=== PATIENT | female | born 1995 | race Caucasian/White ===

== ENCOUNTER 2017-01-09 18:55 | Inpatient (IN) | payer OTHER ==
[~2017-01-09] VITALS: Ht 167.6 cm; Wt 93.0 kg
[2017-01-09] MEDS ORDERED: SODIUM CHLOR 0.9% 1000 ML INJ 1,000 ML OTHER PRN (19:22)
[2017-01-09] MEDS: LACTATED RINGER'S 1000 ML INJ 1,000 ML IV SCH ×2 (19:25→20:00)
[2017-01-09] MEDS ORDERED: LACTATED RINGER'S 1000 ML INJ 1,000 ML IV PRN (19:25)
[2017-01-09] MEDS ORDERED: SODIUM CHLORIDE 0.9% FLUSH 10 ML FLUSH IV FLUSH PRN (19:30)
[2017-01-09] MEDS ORDERED: LIDOCAINE HCL 1% 50 ML VIAL I-DERMAL PRN (19:30)
[2017-01-09] MEDS ORDERED: CITRIC ACID-SODIUM CITRATE LIQ 30 ML UDC PO SCH (19:30)
[2017-01-09] MEDS ORDERED: OXYTOCIN 30 UNITS-500ML PREMIX 500 ML IV ONE (19:30)
[2017-01-09] MEDS ORDERED: ONDANSETRON HCL 4 MG/2 ML VIAL IV PRN (19:30)
[2017-01-09] MEDS ORDERED: LIDOCAINE HCL 1% 50 ML VIAL INFIL PRN (19:30)
[2017-01-09] MEDS ORDERED: PILL SPLITTER OTHER PRN (19:30)
[2017-01-09] MEDS ORDERED: SODIUM CHLORID 0.9% 500 ML INJ 500 ML IV PRN (19:30)
[2017-01-09] MEDS ORDERED: MISOPROSTOL 25 MCG SUPP VAGINAL ONE (19:30)
[2017-01-09] MEDS ORDERED: MISOPROSTOL 100 MCG TAB VAGINAL ONE (19:30)
[2017-01-09] MEDS ORDERED: PENICILLIN G POTASSIUM INJ 5,000,000 UNITS in SODIUM CHLORIDE 0.9% INJ 100 ML IV ONE (19:30)
[2017-01-09] MEDS ORDERED: MINERAL OIL 10 ML VIAL TOPICAL PRN (19:30)
[2017-01-09] MEDS ORDERED: SODIUM CHLOR 0.9% 1000 ML INJ 1,000 ML IV PRN (19:45)
--- NOTE | 2017-01-09 19:59 | HHI.HP ---
HPI Chief Complaint Scheduled IOL Travel History International Travel<30 Days: No Contact w/Intl Traveler<30Days: No Known Affected Area: No History of Present Illness HPI 21-year-old , IUP at 40.6 care complicated by GBS positive, late care, history of BV, Rh -, maternal short stature Patient presents for scheduled induction of labor at 40 weeks and 6 days. She reports good movement. She denies any LOF or VB. She reports no contractions or painful cramping. She has no other concerns or complaints tonight. Weeks Gestation: 40 Para: 0 : 1 History Past Medical History Narrative Medical Obesity Obstetric History Obstetric History Denies any abnormal Pap smears or sexually transmitted infections Past Surgical History Narrative Surgical Denies Family History Narrative Family History Denies Social History Alcohol Use: No Tobacco Use: No Substance Abuse: No Allergies-Medications (Allergen,Severity, Reaction): Coded Allergies: No Known Allergies (Unverified , 01/09/17) Home Meds No Active Prescriptions or Reported Meds Review of Systems Except as stated in HPI: all other systems reviewed are Neg Physical Exam Narrative GENERAL: Well-nourished, well-developed patient. SKIN: Warm and dry. HEAD: Normocephalic and atraumatic. EYES: No scleral icterus. No injection or drainage. ENT: No nasal drainage noted. Mucous membranes pink. Airway patent. NECK: Supple, trachea midline. No JVD. CARDIOVASCULAR: Regular rate and rhythm without murmurs, gallops, or rubs. RESPIRATORY: Breath sounds equal bilaterally. No accessory muscle use. BREASTS: Deferred ABDOMEN/GI: Abdomen soft, non-tender, bowel sounds present, no rebound, no guarding Gravid GENITOURINARY: External Genitalia: intact and normal in appearance. Normal BUS. No cervical or vaginal masses appreciated. Grossly normal rugae. Physiologic discharge. SVE closed/thick/high/posterior. FHT's: heart tones with baseline 150s, good accelerations, no decelerations, moderate long-term variability noted with a category 1 heart rate tracing EXTREMITIES: No cyanosis or edema. BACK: Nontender without obvious deformity. No CVA tenderness. NEUROLOGICAL: Awake and alert. Motor and sensory grossly within normal limits. Five out of 5 muscle strength in all muscle groups. Normal speech. Musculoskeletal: Grossly normal ROM, gait, muscle strength Psychiatric: Grossly normal memory and affect Caprini VTE Risk Assessment Caprini VTE Risk Assessment: No/Low Risk (score <= 1) Caprini Risk Assessment Model Point Value = 1 Point Value = 2 Point Value = 3 Point Value = 5 Age 41-60 Minor surgery BMI > 25 kg/m2 Swollen legs Varicose veins or History of unexplained or recurrent spontaneous Oral contraceptives or hormone replacement Sepsis (< 1 month) Serious lung disease, including pneumonia (< 1 month) Abnormal pulmonary function Acute myocardial infarction Congestive heart failure (< 1 month) History of inflammatory bowel disease Medical patient at bed rest Age 61-74 Arthroscopic surgery Major open surgery (> 45 min) Laparoscopic surgery (> 45 min) Malignancy Confined to bed (> 72 hours) Immobilizing plaster cast Central venous access Age >= 75 History of VTE Family history of VTE Factor V Leiden Prothrombin [id number] Lupus anticoagulant Anticardiolipin antibodies Elevated serum homocysteine Heparin-induced thrombocytopenia Other congenital or acquired thrombophilia Stroke (< 1 month) Elective arthroplasty Hip, pelvis, or leg fracture Acute spinal cord injury (< 1 month) Prophylaxis Regimen Total Risk Factor Score Risk Level Prophylaxis Regimen 0-1 Low Early ambulation 2 Moderate Order ONE of the following: *Sequential Compression Device (SCD) *Heparin 5000 units SQ BID 3-4 Higher Order ONE of the following medications: *Heparin 5000 units SQ TID *Enoxaparin/Lovenox 40 mg SQ daily (WT < 150 kg, CrCl > 30 mL/min) *Enoxaparin/Lovenox 30 mg SQ daily (WT < 150 kg, CrCl > 10-29 mL/min) *Enoxaparin/Lovenox 30 mg SQ BID (WT < 150 kg, CrCl > 30 mL/min) AND/OR *Sequential Compression Device (SCD) 5 or more Highest Order ONE of the following medications: *Heparin 5000 units SQ TID (Preferred with Epidurals) *Enoxaparin/Lovenox 40 mg SQ daily (WT < 150 kg, CrCl > 30 mL/min) *Enoxaparin/Lovenox 30 mg SQ daily (WT < 150 kg, CrCl > 10-29 mL/min) *Enoxaparin/Lovenox 30 mg SQ BID (WT < 150 kg, CrCl > 30 mL/min) AND *Sequential Compression Device (SCD) Data Data Orders Orders Admit To Inpatient (01/09/17 ) Diet Liquid (01/10/17 Breakfast) ^ Labor Induction (01/09/17 19:22) ^ Vaginal Insert (01/09/17 19:22) ^ Vaginal Lavage (01/09/17 19:22) Heart (01/09/17 19:22) Misoprostol (Cytotec) (01/09/17 19:30) Sodium Chloride 0.9% Flush (Ns Flush) (01/09/17 21:00) Sodium Chloride 0.9% Flush (Ns Flush) (01/09/17 19:30) Sodium Chlor 0.9% 1000 Ml Inj (Ns 1000 M (01/09/17 19:22) Misoprostol Supp (Cytotec Supp) (01/09/17 19:30) Misoprostol Supp (Cytotec Supp) (01/09/17 23:30) Inpatient Certification (01/09/17 ) Admit To Inpatient (01/09/17 ) Code Status (01/09/17 19:25) Vital Signs (Adult) .Per protocol (01/09/17 19:25) Heart (01/09/17 19:25) Amnioinfusion (01/09/17 19:25) Urinary Catheter Management .ONCE (01/09/17 19:25) Lactated Ringer's 1000 Ml Inj (Lr 1000 M (01/09/17 19:25) Lactated Ringer's 1000 Ml Inj (Lr 1000 M (01/09/17 19:25) Sodium Chlorid 0.9% 500 Ml Inj (Ns 500 M (01/09/17 19:30) Sodium Chlor 0.9% 1000 Ml Inj (Ns 1000 M (01/09/17 19:45) Lidocaine 1% Inj (50 Ml) (Xylocaine 1% I (01/09/17 19:30) Citric Acid-Sodium Citrate Liq (Bicitra (01/09/17 19:30) Ondansetron Inj (Zofran Inj) (01/09/17 19:30) Fentanyl Inj (Fentanyl Inj) (01/09/17 19:30) Fentanyl Inj (Fentanyl Inj) (01/09/17 19:30) Penicillin G Potassium Inj (Pfizerpen-G (01/09/17 19:30) Complete Blood Count With Diff (01/09/17 19:25) Hold Clot (01/09/17:25) Abo/Rh Blood Type (01/09/17:) Urinalysis - C+S If Indicated (01/09/17 19:25) Resp Oxygen Non Rebreathe Mask (01/09/17 ) ^ Epidural / Intrathecal Infus (01/09/17:) Oxytocin 30 Units-500ml Premix (Pitocin (01/09/17:30) Lidocaine 1% Inj (50 Ml) (Xylocaine 1% I (01/09/17:30) Light Mineral Oil (Muri-Lube Oil) (01/09/17 19:30) Inpatient Certification (01/09/17 ) Specimen To Be Collected PRN (01/09/17:) Pill Splitter (Pill Splitter) (01/09/17 19:30) Penicillin G Potassium Inj (Pfizerpen-G (01/10/17 00:00) Assessment/Plan Assessment and Plan Assessment/plan: 1. IUP at 40.6 2. Induction of labor: Risks benefits and alternatives to induction of labor were discussed at length with the patient including the methods of delivery. We discussed that her last weight assessment was 6 pounds and 13 ounces on 12/10/16. We discussed that the fetus averages a half a pound per week growth but the ultrasound has some inaccuracies in measurement. We discussed the risks of vaginal delivery including those associated with shoulder dystocia which include but are not limited to permanent and irreversible neurological injury to the fetus, brain damage, and even . We discussed that she does not meet guidelines to recommend a delivery. We discussed indications as well as risks and benefits of delivery discussed that delivery is increased in patients who are undergoing induction of labor. We discussed that she would be a candidate for an delivery for failed induction, failure to progress, or nonreassuring status. The patient accepts risks for vaginal delivery and will agree to if indicated. Cytotec 25 g was placed as per protocol. 3. GBS positive: Will start penicillin G in labor. 4. Late care and 5. History of BV 6. Rh-: Status post program 7. well-being: Reassuring testing with moderate long-term variability, good accelerations, and no decelerations noted. heart rate is reassuring and appropriate for gestational age and is currently a category 1 tracing. Angely Dhaliwal MD Jan 09, 2017 19:59
[2017-01-09 20:37] LABS: AUTOMATED NEUTROPHIL # 5.9 TH/MM3 (1.8-7.7); BASOPHIL % 0.3 % (0.0-2.0); EOSINOPHIL # 0.1 TH/MM3 (0-0.4); EOSINOPHIL % 0.7 % (0.0-4.0); HEMATOCRIT 30.8 % (35.0-46.0); HEMO FLAGS DIFF FINAL; LYMPH % 27.5 % (9.0-44.0); LYMPHOCYTE # 2.7 TH/MM3 (1.0-4.8); MEAN CELL VOLUME 89.4 FL (80.0-100.0); MEAN CORPUSCULAR HEMOGLOBIN 30.7 PG (27.0-34.0); MEAN CORPUSCULAR HGB CONC 34.4 % (32.0-36.0); MONO % 10.6 % (0.0-8.0); NEUT % 60.9 % (16.0-70.0); PLATELET COUNT 228 TH/MM3 (150-450); RED BLOOD COUNT 3.45 MIL/MM3 (4.00-5.30); RED CELL DISTRIBUTION WIDTH 12.6 % (11.6-17.2); WHITE BLOOD COUNT 9.7 TH/MM3 (4.0-11.0)
[2017-01-09 20:52] LABS: BLOOD, URINE NEG (NEG); COMMENT (UR) CULT NOT INDICATED; CULTURE IF INDICATED CULT NOT INDICATED; GLUCOSE,URINE NEG (NEG); KETONE, URINE NEG (NEG); NITRITE,URINE NEG (NEG); URINE COLOR LIGHT-YELLOW (YELLW/STRAW)
[2017-01-09] MEDS: SODIUM CHLORIDE 0.9% FLUSH 10 ML FLUSH IV FLUSH SCH (21:00)
[2017-01-09] MEDS ORDERED: MISOPROSTOL 25 MCG SUPP VAGINAL PRN (23:30)
--- NOTE | 2017-01-10 00:21 | PD.LABORPN ---
Subjective Subjective Patient is resting comfortably, reports mild and irregular cramping. She is feeling normal movement. Objective Objective Pelvic Exam: Fingertip/50/-3 FHT's: Baseline FHTs in the 150s with moderate long-term variability, good accelerations, no decelerations noted. Category FHR tracing Weeks Gestation: 40 Gest Age Assessed Date: Jan 10, 2017 Gest Age Assessed Time: 00:20 Pt started active labor?: No Medical induction of labor?: Yes Medical induction start date: Jan 09, 2017 Medical induction start time: 20:00 Artificial rupture of membrane: No Assessment/Plan Assessment and Plan Assessment/plan: 1. IUP at 40.6 2. Induction of labor: Status post Cytotec 1, second Cytotec placed 3. GBS positive: Will start penicillin G when in labor 4. well-being: Reassuring testing was reactive NST and category 1 FHR tracing, continue monitoring Angely Dhaliwal MD Jan 10, 2017 00:21
[2017-01-10] MEDS ORDERED: OXYTOCIN 30 UNITS-500ML PREMIX 500 ML IV SCH (03:00)
[2017-01-10] MEDS: LACTATED RINGER'S 1000 ML INJ 1,000 ML IV SCH ×3 (04:03→17:50)
[2017-01-10] MEDS ORDERED: PENICILLIN G POTASSIUM INJ 2,500,000 UNITS in SODIUM CHLORIDE 0.9% INJ 100 ML IV SCH ×3 (07:45)
[2017-01-10] MEDS ORDERED: PENICILLIN G POT 5,000,000 UNITS/NS 100 ML(Mini-Bag Plus) IV ONE ×2 (08:00)
--- NOTE | 2017-01-10 10:05 | PD.LABORPN ---
Subjective Subjective Vaginal exam done. Pt has no complains. Objective Objective Pelvic Exam: Cervix: midposition Dilatation: 1cm Effacement: 30 Station: -3 Presentation: vertex Membranes: [intact or ruptured] Uterine Contractions: irregular, about every 4 mins FHT's: Category: 1 Baseline: 130 Reactive: positive Variability: moderate Decels: none Weeks Gestation: 40 Gest Age Assessed Date: Jan 10, 2017 Gest Age Assessed Time: 00:20 Pt started active labor?: No Medical induction of labor?: Yes Medical induction start date: Jan 09, 2017 Medical induction start time: 20:00 Artificial rupture of membrane: No Assessment/Plan Problem List: (1) 41 weeks gestation of ICD Codes: Z3A.41 - 41 weeks gestation of Assessment and Plan 21 yo at 41 wks in active labor. 1. IUP at 41 -oxytocin started per protocol - GBS positive on Pen G - will continue to monitor labor progression sdw with Alex Estes MD R1 Jan 10, 2017 10:04
[2017-01-10] MEDS: PENICILLIN G POTASSIUM INJ 2,500,000 UNITS in SODIUM CHLORIDE 0.9% INJ 100 ML IV SCH ×2 (15:04→20:00)
[2017-01-10] MEDS: SODIUM CHLORIDE 0.9% FLUSH 10 ML FLUSH IV FLUSH SCH (20:00)
[2017-01-10] MEDS ORDERED: fentaNYL 2MCG-BUPIV 0.125% INJ 100 ML ONE (23:10)
[2017-01-10] MEDS ORDERED: BUPIVACAINE HCL PF 0.25% 10 ML VIAL ONE (23:10)
[2017-01-11] MEDS ORDERED: ePHEDrine/NS 25 MG/5 ML SYR IV PRN (00:45)
[2017-01-11] MEDS ORDERED: NO SYSTEM NARCOTICS PRN (00:45)
[2017-01-11] MEDS ORDERED: DO NOT ADMINISTER ANTICOAGULANTS PRN (00:45)
[2017-01-11] MEDS: PENICILLIN G POTASSIUM INJ 2,500,000 UNITS in SODIUM CHLORIDE 0.9% INJ 100 ML IV SCH ×6 (00:49→20:00)
[2017-01-11] MEDS: fentaNYL 2MCG-BUPIV 0.125% 100 ML EPIDURAL SCH ×3 (00:51→13:57)
[2017-01-11] MEDS: SODIUM CHLORIDE 0.9% FLUSH 10 ML FLUSH IV FLUSH SCH (09:00)
[2017-01-11] MEDS: LACTATED RINGER'S 1000 ML INJ 1,000 ML IV SCH (11:25)
[2017-01-11] MEDS ORDERED: LIDOCAINE 2%/EPINEPHrine PF 1:200,000 20ML SDV INFIL ONE (12:00)
[2017-01-11] MEDS ORDERED: MORPHINE SULFATE PF 5 MG/10 ML VIAL EPIDURAL ONE (12:00)
[2017-01-11] MEDS ORDERED: PHENYLEPH/NS 1000 MCG/10 ML SYR IV ONE (12:00)
[2017-01-11] MEDS ORDERED: OXYTOCIN 10 UNIT/ML AMP IV ONE (12:00)
[2017-01-11] MEDS ORDERED: ONDANSETRON HCL 4 MG/2 ML VIAL IV PUSH ONE (12:00)
[2017-01-11] MEDS ORDERED: LACTATED RINGER'S 1000 ML INJ 1,000 ML IV ONE ×2 (12:00→14:37)
--- NOTE | 2017-01-11 12:45 | PD.LABORPN ---
Subjective Subjective Patient is feeling contraction pain again. Objective Vital Signs Vital Signs Date Time Temp Pulse Resp B/P (MAP) Pulse Ox O2 Delivery O2 Flow Rate FiO2 01/11/17 07:53 18 Objective Pelvic Exam: SVE 4/90/-3, no significant change from examination at 7:40 AM FHT's: Category 1F HR with baseline in the 140s, moderate long-term variability , good accelerations, no decelerations noted [place]: Every 3 minutes Weeks Gestation: 41 Gest Age Assessed Date: Jan 10, 2017 Gest Age Assessed Time: 00:20 Pt started active labor?: Yes Active labor start date: Jan 11, 2017 Active labor start time: 07:40 Medical induction of labor?: Yes Medical induction start date: Jan 09, 2017 Medical induction start time: 20:00 Artificial rupture of membrane: No Artificial ROM date: Jan 10, 2017 Artifical ROM time: 12:00 Assessment/Plan Problem List: (1) 41 weeks gestation of ICD Codes: Z3A.41 - 41 weeks gestation of Assessment and Plan Assessment/plan: 1. IUP at 41.1 2. Induction of labor: Patient status post Cytotec induction, now on oxytocin with no cervical change in 5 hours, we'll reassess in 2-3 hours. Discussed with patient the potential need for delivery if indicated 3. GBS positive: Continue penicillin G 4. well-being: Reassuring testing with category 1 heart rate tracing, will continue Angely Rachel MD Jan 11, 2017 12:45
[2017-01-11] MEDS ORDERED: MISOPROSTOL 200 MCG TAB ONE (14:38)
[2017-01-11] MEDS ORDERED: METHYLERGONOVINE MALEATE 0.2 MG/ML VIAL ONE (14:39)
[2017-01-11] MEDS ORDERED: OXYTOCIN 10 UNIT/ML AMP ONE (14:44)
[2017-01-11] MEDS ORDERED: ACETAMINOPHEN 1000 MG/100 ML 100 ML IV ONE ×2 (14:44→19:45)
--- NOTE | 2017-01-11 14:55 | PD.LABORPN ---
Subjective Subjective Patient is resting comfortably Objective Vital Signs Vital Signs Date Time Temp Pulse Resp B/P (MAP) Pulse Ox O2 Delivery O2 Flow Rate FiO2 01/11/17 13:57 18 01/11/17 07:53 18 Objective Pelvic Exam: /-3 FHT's: 140s with moderate long-term variability, good accelerations, no accelerations, category 1 [place]: Every 2-3 minutes Weeks Gestation: 41 Gest Age Assessed Date: Jan 10, 2017 Gest Age Assessed Time: 00:20 Pt started active labor?: Yes Active labor start date: Jan 11, 2017 Active labor start time: 07:40 Medical induction of labor?: Yes Medical induction start date: Jan 09, 2017 Medical induction start time: 20:00 Artificial rupture of membrane: No Artificial ROM date: Jan 10, 2017 Artifical ROM time: 12:00 Assessment/Plan Problem List: (1) 41 weeks gestation of ICD Codes: Z3A.41 - 41 weeks gestation of Assessment and Plan Assessment/plan: 1. IUP at 41.1 2. Postdates Induction of labor: Patient has made no cervical change management the course of 7 hours and remains 4/90/-3. We discussed proceeding with delivery at this time due to her failure to progress further in labor. The patient is in agreement. Risks benefits and alternatives were discussed with patient again including but not limited to pain, infection, bleeding, bleeding that might require blood transfusion or hysterectomy, repeat operation, wound infection or breakdown, injury to other organs like the bladder, bowels, nerves , vessels, injury to the baby and other possible risks. We discussed that her risk of bleeding is higher because she is been on oxytocin since yesterday. She is aware we will likely be giving her additional medication after she delivers due to her increased risk of bleeding. 3. GBS positive: Has received penicillin G 4. well-being: Reassuring testing Angely Dhaliwal MD Jan 11, 2017 14:55
[2017-01-11] MEDS ORDERED: LACTATED RINGER'S 1000 ML INJ 1,000 ML IV SCH (15:07)
[2017-01-11] MEDS ORDERED: ceFAZolin 2 GM PREMIX 50 ML IV SCH (15:45)
[2017-01-11] MEDS ORDERED: CITRIC ACID-SODIUM CITRATE LIQ 30 ML UDC PO SCH (16:15)
--- NOTE | 2017-01-11 18:14 | PD.OB.DELI ---
Procedure Note Section Procedure Performed by Angely Dhaliwal Procedure: Primary Low Transverse Sec Indication for delivery: Other (arrest of dilation, failure to progress) Previous condition: None Informed consent obtained: For anesthesia, For procedure Confirmed correct: Patient, Procedure, Site, Time-out taken Anesthesia: Epidural Medication prior to procedure: As documented in eMAR Monitoring during procedure: Blood pressure monitoring, pvc monitor, doppler, monitor Urinary catheter: Inserted using sterile technique, To dependent drainage, ml urine output (400 cc clear urine at the end of the procedure) Sterile preparation: Other (ChloraPrep) Position: Supine with wedge to left side Operative Features Skin Incision: Pfannenstiel Uterine Incision: Low transverse w/knife / blunt ext Membranes Ruptured: Previously Presentation: Occiput anterior Delivery date: Jan 11, 2017 Delivery time: 17:28 Delivery of infant: Uneventful Infant: Male One Minute : 8 Five Minute : 9 Weight: 3970 g Status of infant: Viable, Cord blood, Nursery present Placenta delivered: Intact Medications: Antibiotics, Oxytocin, Prostaglandins Estimated blood loss: 750 cc Procedure tolerated: Well Maternal Condition: Stable Condition: Stable Angely Dhaliwal MD Jan 11, 2017 18:14
[2017-01-11] MEDS ORDERED: OXYTOCIN 30 UNITS-500ML PREMIX 500 ML ONE (19:24)
[2017-01-11] MEDS ORDERED: ONDANSETRON HCL 4 MG/2 ML VIAL IV PUSH PRN (19:45)
[2017-01-11] MEDS ORDERED: oxyCODONE/ACETAMINOPHEN 5 MG/325 MG TAB PO PRN (19:45)
[2017-01-11] MEDS ORDERED: SODIUM CHLORIDE 0.9% FLUSH 10 ML FLUSH IV FLUSH PRN (19:45)
[2017-01-11] MEDS ORDERED: OXYTOCIN 30 UNITS-500ML PREMIX 500 ML IV ONE (19:45)
[2017-01-11] MEDS ORDERED: SIMETHICONE 80 MG CHEWABLE TAB PO PRN (19:45)
[2017-01-11] MEDS ORDERED: ZOLPIDEM TARTRATE 5 MG TAB PO PRN (19:45)
[2017-01-11] MEDS ORDERED: ACETAMINOPHEN 325 MG TAB PO PRN (19:45)
[2017-01-11] MEDS ORDERED: SODIUM CHLORIDE 0.9% FLUSH 10 ML FLUSH IV FLUSH SCH (21:00)
[2017-01-12] MEDS ORDERED: LACTATED RINGER'S 1000 ML INJ 1,000 ML IV SCH (00:43)
--- NOTE | 2017-01-12 05:25 | MP ---
cc: ANGELY DHALIWAL MD DATE OF SURGERY: 01/11/2017 PREOPERATIVE DIAGNOSIS: 1. Intrauterine at 41.1. 2. Arrest of dilation/failure to progress. 3. History of bacterial vaginosis. 4. Rh negative. 5. GBS positive. POSTOPERATIVE DIAGNOSIS: 1. Intrauterine at 41.1. 2. Arrest of dilation/failure to progress. 3. History of bacterial vaginosis. 4. Rh negative. 5. GBS positive. SURGEON: Dr. Angely Dhaliwal STATIC BALANCER: Simona Valentine. PROCEDURE PERFORMED: Primary low transverse section with two layer closure, no extensions by Pfannenstiel skin incision. INDICATIONS: The patient is a 21 year-old 1, para 0, who presented for post term induction of labor. She underwent Cytotec induction followed by oxytocin. She progressed to 490 minus 3, but made no further cervical exchange clerk 7 hours. Decision was made to proceed with delivery. FINDINGS: A viable male , cephalic presentation, with Apgars 8 and 9, weighing 3970 grams (8 pounds 12 ounces). The patient had normal maternal anatomy with normal fallopian tubes, uterus and ovaries. SPECIMENS REMOVED. Placenta ESTIMATED BLOOD LOSS: 750 cc. IV FLUIDS: 1200 cc URINE OUTPUT: 400 cc, clear urine at the end of the procedure. PROCEDURE DESCRIPTION: After obtaining informed consent with risks, benefits and alternatives, discussed at length including but not limited to pain, infection, bleeding, injury to organs such as bladder, bowel, nerves, vessels, injury to the baby, need for repeat operation, need for blood transfusion, need for hysterectomy, wound infection or breakdown, and other possible complications, the patient was taken to the operating room with IV fluids running and a Yarbrough catheter in place. Reassuring heart tones were noted in the patient's room and were confirmed upon arrival in the operating room. Her epidural was redosed and confirmed to be adequate. After once again confirming adequate heart tones, the patient was prepped and draped in normal sterile fashion. Adequate anesthesia was once again confirmed and appropriate time out procedure performed. A Pfannenstiel skin incision was made with a scalpel and carried down to the level of the fascia with the scalpel. The fascia was nicked in the midline and the fascia extended laterally. Jeremy clamps were applied to the superior aspect of the fascial incision and dissected off the underlying rectus muscles bluntly and with the curved Keller scissors. The Jeremy clamps were applied to the inferior aspect of the fascial incision which was dissected off in a similar fashion. The rectus muscles were in the midline and the peritoneum entered bluntly. The Jesus Manuel self-containing wound retractor was placed and the vesicouterine peritoneum identified, grasped with pickups and entered sharply with the Metzenbaum scissors. This incision was extended laterally with the Metzenbaum scissors and the bladder flap created digitally. The lower uterine segment was tented up with the Allis clamps and the lower uterine segment thinned out. A hysterotomy was created bluntly and extended bluntly. The vertex was elevated to the level of the hysterotomy and delivered atraumatically, followed by atraumatic delivery of the remainder of the . The was vigorous at delivery and the nose and mouth were suctioned to bulb suction. The cord clamp was delayed by 45 seconds as per protocol, followed by double clamping and the cord was cut. The vigorous was passed off to the awaiting neonatology team. The placenta was removed manually and the uterus cleared of all clots and debris. The hysterotomy was repaired with #1 chromic in a running locked fashion. A second layer of the same suture was used in an imbricating fashion. An additional box stitch was used at the mid portion of the hysterotomy after which excellent hemostasis was noted. The gutters were cleared of all clots and debris. The hysterotomy was reinspected and noted to be hemostatic. The Jesus Manuel containing wound retractor was removed and the gutters again cleared of all clots and debris, and the hysterotomy reinspected and noted to be hemostatic. The peritoneum was reapproximated with 2-0 Vicryl in a running fashion. The rectus muscles were examined and noted to be hemostatic. The fascia was reapproximated with #1 Vicryl in a running fashion. The subcutaneous tissue was irrigated with warm normal saline and noted to be hemostatic. The subcutaneous tissue was reapproximated with 2-0 Vicryl in an interrupted fashion. The skin edges were reapproximated with 3-0 Monocryl in a subcuticular fashion. Excellent hemostasis and cosmesis were noted. All sponge, lap and needle counts were correct x2. I performed the entire procedure myself. The patient was taken to the PACU in stable condition. MD ATIF [place] /10:09 PM /4:05 AM
[2017-01-12 05:40] LABS: AUTOMATED NEUTROPHIL # 7.4 TH/MM3 (1.8-7.7); BASOPHIL % 0.1 % (0.0-2.0); EOSINOPHIL # 0.1 TH/MM3 (0-0.4); EOSINOPHIL % 0.5 % (0.0-4.0); HEMATOCRIT 25.8 % (35.0-46.0); HEMO FLAGS DIFF FINAL; LYMPH % 20.1 % (9.0-44.0); LYMPHOCYTE # 2.2 TH/MM3 (1.0-4.8); MEAN CELL VOLUME 90.2 FL (80.0-100.0); MEAN CORPUSCULAR HEMOGLOBIN 30.5 PG (27.0-34.0); MEAN CORPUSCULAR HGB CONC 33.9 % (32.0-36.0); MONO % 10.1 % (0.0-8.0); NEUT % 69.2 % (16.0-70.0); PLATELET COUNT 160 TH/MM3 (150-450); RED BLOOD COUNT 2.86 MIL/MM3 (4.00-5.30); RED CELL DISTRIBUTION WIDTH 12.6 % (11.6-17.2); WHITE BLOOD COUNT 10.7 TH/MM3 (4.0-11.0)
[2017-01-12] MEDS ORDERED: OXYTOCIN 30 UNITS-500ML PREMIX 500 ML IV PRN (05:45)
--- NOTE | 2017-01-12 10:26 | HHI.OB ---
Subjective Post Operative Day: 1 Remarks Pt seen and examined this morning. Postoperative day # 1 AFVSS overnight. Incision nondraining. Decreased lochia. Denies dysuria. No breast tenderness. She is feeding the baby via breast. Appetite good. No nausea or vomiting. Patient has not yet had a bowel movement, but does endorse bowel gas. Ambulating well. Denies calf pain or shortness of breath. Otherwise, she is doing well this morning and has no other concerns. Objective Vitals/I&O Vital Signs Date Time Temp Pulse Resp B/P (MAP) Pulse Ox O2 Delivery O2 Flow Rate FiO2 01/11/17 13:57 18 Intake & Output 01/12/17 01/12/17 07:00 19:00 Intake Total 4400 ml Balance 4400 ml Intake IV Total 4400 ml Result Diagram: 01/12/17 0525 Objective Remarks GENERAL: Well-nourished, well-developed patient. CARDIOVASCULAR: Regular rate and rhythm without murmurs, gallops, or rubs. RESPIRATORY: Breath sounds equal bilaterally. No accessory muscle use. ABDOMEN/GI: Abdomen soft, non-tender, bowel sounds present. Incision: Clean, dry and intact. Fundus: Firm, non-tender at umbilicus. GENITOURINARY: Light to moderate bleeding. EXTREMITIES: No cyanosis or edema, non-tender, without signs of DVT. Medications and IVs Current Medications Medications (Trade) Dose Ordered Sig/Jonny Route Start Time Stop Time Status Last Admin Lactated Ringer's 1,000 ml @ 100 mls/hr Q10H IV 01/12/17 00:43 01/12/17 20:42 01/12/17 01:58 Oxytocin 500 ml @ 100 mls/hr UNSCH X1 PRN IV 01/12/17 05:45 01/13/17 05:44 (NS Flush) 2 ml BID IV FLUSH 01/11/17 21:00 01/11/17 23:44 (NS Flush) 2 ml UNSCH PRN IV FLUSH 01/11/17 19:45 (Mylicon Chew) 80 mg QID PRN PO 01/11/17 19:45 (Tylenol) 650 mg Q6H PRN PO 01/11/17 19:45 (Motrin) 600 mg Q6H PRN PO 01/11/17 19:45 (Percocet 5-325 Mg) 1 tab Q4H PRN PO 01/11/17 19:45 (Percocet 5-325 Mg) 2 tab Q4H PRN PO 01/11/17 19:45 (Dianna-Colace) 2 tab Q12H PRN PO 01/11/17 19:45 (Ambien) 5 mg HS PRN PO 01/11/17 19:45 (M-M-R Ii Inj) 0.5 ml ONCE ONCE SQ 01/12/17 16:00 01/12/17 16:01 (Boostrix Inj) 0.5 ml ONCE ONCE IM 01/12/17 16:00 01/12/17 16:01 (Zofran Inj) 4 mg Q6H PRN IV PUSH 01/11/17 19:45 Assessment/Plan Problem List: (1) 41 weeks gestation of ICD Codes: Z3A.41 - 41 weeks gestation of Status: Acute (2) delivery delivered ICD Codes: O82 - Encounter for delivery without indication Status: Acute Assessment and Plan 21y/o female who is postoperative day # 1 s/p located . -Continue routine care. -Percocet and Motrin PRN pain. -Encouraged OOB. Advised pelvic rest for 6 wks. patient will need incision check in 1 week. -Re: ctrl, she would like discussed her options at her follow-up PATTERN [facility]ER appointment. -Anticipate discharge in 1-2 days pending clinical course. aisha Dhailwal MD Discharge Planning 1-2 days pending clinical course Clive Gómez MD R2 Jan 12, 2017 10:26
[2017-01-12] MEDS: DOCUSATE SODIUM 50 MG/SENNA 8.6 MG TAB PO PRN (11:05)
[2017-01-12] MEDS: oxyCODONE/ACETAMINOPHEN 5 MG/325 MG TAB PO PRN ×2 (11:07→19:42)
[2017-01-12] MEDS: IBUPROFEN 600 MG TAB PO PRN ×2 (11:07→19:42)
[2017-01-12 12:00] VITALS: BP 99/58; PULSE 91; RESP 16; TEMP 98.7
[2017-01-12] MEDS ORDERED: DIPHTH/TETANUS/ACEL PERTUSSIS (BOOSTER) 0.5 ML VIAL/PFS IM ONE (16:00)
[2017-01-12] MEDS ORDERED: MEASLES, MUMPS, RUBELLA VACCINE 0.5 ML VIAL SQ ONE (16:00)
[2017-01-12 17:20] VITALS: BP 98/63; PULSE 69; RESP 16; TEMP 98.6
[2017-01-13] MEDS: IBUPROFEN 600 MG TAB PO PRN ×4 (01:24→20:57)
[2017-01-13] MEDS: oxyCODONE/ACETAMINOPHEN 5 MG/325 MG TAB PO PRN ×4 (01:24→20:58)
--- NOTE | 2017-01-13 09:43 | HHI.OB ---
Subjective Post Day: 2 Remarks day #2. AFVSS overnight. Pain 5/10 with pain medication. Decreased lochia. Denies dysuria. No breast tenderness. She is feeding the baby via breast. Appetite good. No nausea or vomiting. Passing flatus. No bowel movement. Ambulating well. Denies calf pain, shortness of breath, or cough. Otherwise, she is doing well this morning and has no other complaints. Objective Vitals/I&O Vital Signs Date Time Temp Pulse Resp B/P (MAP) Pulse Ox O2 Delivery O2 Flow Rate FiO2 01/12/17 17:20 98.6 69 16 98/63 (75) 01/12/17 12:00 98.7 91 16 99/58 (72) Objective Remarks GENERAL: Well-nourished, well-developed patient. CARDIOVASCULAR: Regular rate and rhythm without murmurs, gallops, or rubs. RESPIRATORY: Breath sounds equal bilaterally. No accessory muscle use. ABDOMEN/GI: Abdomen soft, non-tender. Fundus: Firm, non-tender at umbilicus. Incision clean, dry, intact GENITOURINARY: Light to moderate bleeding. EXTREMITIES: No cyanosis or edema, non-tender, without signs of DVT. Medications and IVs Current Medications Medications (Trade) Dose Ordered Sig/Jonny Route Start Time Stop Time Status Last Admin (NS Flush) 2 ml BID IV FLUSH 01/11/17 21:00 01/11/17 23:44 (NS Flush) 2 ml UNSCH PRN IV FLUSH 01/11/17 19:45 (Mylicon Chew) 80 mg QID PRN PO 01/11/17 19:45 01/12/17 11:06 (Tylenol) 650 mg Q6H PRN PO 01/11/17 19:45 (Motrin) 600 mg Q6H PRN PO 01/11/17 19:45 01/13/17 08:07 (Percocet 5-325 Mg) 1 tab Q4H PRN PO 01/11/17 19:45 (Percocet 5-325 Mg) 2 tab Q4H PRN PO 01/11/17 19:45 01/13/17 08:07 (Dianna-Colace) 2 tab Q12H PRN PO 01/11/17 19:45 01/12/17 11:05 (Ambien) 5 mg HS PRN PO 01/11/17 19:45 (Zofran Inj) 4 mg Q6H PRN IV PUSH 01/11/17 19:45 Assessment/Plan Problem List: (1) 41 weeks gestation of ICD Codes: Z3A.41 - 41 weeks gestation of Status: Acute (2) delivery delivered ICD Codes: O82 - Encounter for delivery without indication Status: Acute Assessment and Plan 21y/o female who is postoperative day # 2 s/p located . -Continue routine care. -Percocet and Motrin PRN pain. -Encouraged OOB. Advised pelvic rest for 6 wks. patient will need incision check in 1 week. -Re: ctrl, she would like discussed her options at her follow-up [facility] appointment. -Anticipate discharge in 1 day pending clinical course. aisha Schuler MD Discharge Planning 1-2 days pending clinical course Candy Thakur MD R1 Jan 13, 2017 09:42
[2017-01-13] MEDS: DOCUSATE SODIUM 50 MG/SENNA 8.6 MG TAB PO PRN (20:56)
[2017-01-14] MEDS: IBUPROFEN 600 MG TAB PO PRN ×2 (03:23→10:03)
[2017-01-14] MEDS: oxyCODONE/ACETAMINOPHEN 5 MG/325 MG TAB PO PRN ×2 (03:24→10:03)
[2017-01-14] MEDS ORDERED: OXYC1TAB63 PO (08:26)
[2017-01-14] MEDS ORDERED: SENN1TAB PO (08:26)
[2017-01-14] MEDS ORDERED: IBUP-232 PO (08:26)
--- NOTE | 2017-01-14 08:27 | HHI.DCPOC ---
Discharge Care Plan Diagnosis: (1) delivery delivered Report Symptoms to Your Doctor -Temperature above 100.5 degrees -Redness, of incision or excessive or foul smelling drainage -Unusual pain or calf pain -Increased vaginal bleeding -Painful or difficulty urinating -Feelings of extreme sadness or anxiety after 2 weeks Goals to Promote Your Health * To prevent worsening of your condition and complications * To maintain your health at the optimal level Directions to Meet Your Goals Take your medications as prescribed Follow your dietary instruction Follow activity as directed Ensure plenty of rest for recovery Drink fluids for hydration Keep your appointments as scheduled Take your immunizations and boosters as scheduled If your symptoms worsen call your PCP, if no PCP go to Urgent Care Center or Emergency Room Smoking is Dangerous to Your Health. Avoid second hand smoke Call the 24-hour crisis hotline for domestic abuse at Jose G Stark MD, R2 Jan 14, 2017 08:27
[2017-01-14] MEDS: DOCUSATE SODIUM 50 MG/SENNA 8.6 MG TAB PO PRN (10:02)
[2017-01-21] MEDS ORDERED: FERRTAB PO (13:55)
[2017-02-11] MEDS ORDERED: METR500T10 PO (14:26)
== END 2017-01-14 15:34 | disposition home or self-care (01) | DRG 766 ==
LOC: H2EA 18:55 → H1EA 01-11 19:47
PROVIDERS: ADMIT Obstetrics & Gynecology; ATTEND Obstetrics & Gynecology
PROC: 3E0P7GC Introduction of Other Therapeutic Substance into Female Reproductive, Via Natural or Artificial Opening (ICD-10-PCS; 2017-01-09)
PROC: 00HU33Z Insertion of Infusion Device into Spinal Canal, Percutaneous Approach (ICD-10-PCS; 2017-01-10)
PROC: 3E0R3CZ (ICD-10-PCS; 2017-01-10)
PROC: 10D00Z1 Extraction of Products of Conception, Low, Open Approach (ICD-10-PCS; principal; 2017-01-11)
PROC: 30233S1 Transfusion of Nonautologous Globulin into Peripheral Vein, Percutaneous Approach (ICD-10-PCS; 2017-01-14)
DX: O48.0 Post-term pregnancy (principal); O99.824 Streptococcus B carrier state complicating childbirth; R62.52 Short stature (child); O61.0 Failed medical induction of labor; O62.0 Primary inadequate contractions; Z3A.41 41 weeks gestation of pregnancy; Z37.0 Single live birth
CPT/HCPCS: 59025; 81001; 85025; 85461; 86850; 86900; 86901; 90384; 90715; J0131; J0690; J2210; J2274; J2370; J2405; J2540; J2590; J2790; J3010; J7120